=== PATIENT | male | born 1995 | race Caucasian/White ===

== ENCOUNTER 2021-04-28 23:39 | Emergency (ER) | payer OTHER ==
[~2021-04-28] VITALS: Ht 182.9 cm; Wt 81.7 kg
== END 2021-04-29 06:00 | disposition home or self-care (01) ==
LOC: ER 23:39
DX: F10.121 Alcohol abuse with intoxication delirium (principal); R11.2 Nausea with vomiting, unspecified
CPT/HCPCS: 70450; 82947; 93005; 93010; 96361; 96374; 96375; 99284-25; J2405; J2765; J7042